=== PATIENT | male | born 1945 | race Two or more races ===

== ENCOUNTER 2019-01-23 08:00 | Inpatient (IN) | payer OTHER ==
[~2019-01-23] VITALS: Ht 167.6 cm; Wt 79.4 kg
[2019-01-23] MEDS ORDERED: RELAFEN PO (08:10)
[2019-01-23] MEDS ORDERED: PLAVIX75 MG PO (08:11)
[2019-01-23] MEDS ORDERED: GALANTAMINE HBR8 MG PO (08:11)
[2019-01-23] MEDS ORDERED: ZETIA10 MG PO (08:11)
[2019-01-23] MEDS ORDERED: NORVASC5 MG PO (08:12)
[2019-01-23] MEDS ORDERED: MULTIVITAMINS1 EAC9 PO (08:13)
[2019-01-23] MEDS ORDERED: LIPITOR PO (08:13)
[2019-01-29] MEDS ORDERED: LIPITOR40 MG PO (10:11)
[2019-01-29] MEDS ORDERED: NABUMETONE500 MG PO (10:12)
[2019-01-29] MEDS ORDERED: AMLODIPINE BESYL5 MG PO (10:13)
[2019-01-29] MEDS ORDERED: SYNTHROID75 MCG PO (10:13)
[2019-01-29] MEDS ORDERED: NABUMETONE750 MG PO (10:15)
[2019-01-29] MEDS ORDERED: ELIQUIS2.5 MG PO (14:51)
[2019-01-29] MEDS ORDERED: PERCOCET 5-3251 EACH PO (14:51)
[2019-01-29] MEDS ORDERED: CIPRO500 MG PO (14:51)
== END 2019-01-29 18:45 | DRG 470 ==
LOC: SURH 01-27 05:10 → O/R 01-27 05:10 → SURH 01-27 08:00
PROVIDERS: ADMIT Orthopaedic Surgery
PROC: 0MNP0ZZ Release Left Knee Bursa and Ligament, Open Approach (ICD-10-PCS; 2019-01-27)
PROC: 0SRD0J9 Replacement of Left Knee Joint with Synthetic Substitute, Cemented, Open Approach (ICD-10-PCS; principal; 2019-01-27 09:45)
DX: M17.12 Unilateral primary osteoarthritis, left knee (principal); D62 Acute posthemorrhagic anemia; I10 Essential (primary) hypertension; E03.8 Other specified hypothyroidism